=== PATIENT | female | born 1945 | race African-American/Black ===

== ENCOUNTER → 2018-03-13 | Outpatient (CLI) | payer OTHER ==
[~2018-03-13] VITALS: Ht 165.1 cm; Wt 72.1 kg
[~2018-03-13] MED LIST: ACIPHEX 20 MG T20 MG PO; ACYCLOVIR 200200 MG; ACYCLOVIR 200200 MG PO; ADULT LOW DOSE81 MG PO; ADVAIR HFA 230M12 GM INH; ADVAIR HFA115 MCG/21 INH; ALBUTEROL2.5 MG/31 INH; ALBUTEROL2.5 MG/32 IH; ALLEGRA ALLERG180 MG PO; ALLEGRA-D 12 H1 EAC1 PO; ALLEGRA180 MG PO; ASPIR 8181 MG PO; ASPIRIN EC81 M1 PO; ASPIRIN325 PO; ASTELIN30 ML NASAL; ATIVAN1 MG PO; ATORVASTATIN CA40 MG PO; BAYER CHEWABLE81 MG PO; BENTYL10 MG PO; BENZONATATE100 MG PO; CARBAMAZEPINE200 M2; CARBAMAZEPINE200 M2 PO; CARBAMAZEPINE200 M6 PO; CO Q-10100 MG PO; COLACE1 EAC1 RC; COLACE100 MG PO; CRESTOR10 MG; CRESTOR10 MG PO; CRESTOR20 MG PO; DILAUDID2 M1 PO; FLAGYL500 MG PO; FLEXERIL PO; GABAPENTIN300 MG PO; GLUCOPHAGE500 MG PO; GLYCOLAX POWDER17 G1 PO; HCTZ PO; HYDROCHLOROTHIA25 M2 PO; HYDROCODON-ACE1 EAC5 PO; HYDROXYZINE HCL25 M1; HYDROXYZINE HCL25 M2 PO; IBUPROFEN 200200 M1; INDOMETHACIN 2525 MG; IRON325 PO; LEVAQUIN 500 M500 M2 PO; LIDODERM 5%1 PATC1 TRANSDERM; LIDODERM 5%1 PATCH TOP; LIPITOR10 MG PO; LISINOPRIL10 MG PO; LMX 430 GM TP; LOVASTAT40; MEDROL DOSPAK21 TAB PO; MEDROLDOSEPACK PO; METFORMIN 500500 MG PO; MIRALAX17 GM PO; NASONEX17 GM NASAL; NEURONTIN 300300 M1 PO; NORCO 10-325 T1 EACH; NORCO 5-325 TA1 EACH PO; NORFLEX100 MG PO; OMEGA-31000 M1 PO; ORPHENADRINE C100 M2 PO; PERCOCET 5-3251 EACH PO; PHENERGAN 25 MG25 M1 PO; PREDNISONE 10 M10 MG PO; PREDNISONE50 MG PO; PROAIR HFA8.5 GM INH; PROCTOFOAM-HC F10 GM RC; PROTONIX40 M2 PO; PROTONIX40 MG PO; PROVENTIL HFA6.7 G1 INH; REGLAN 10 MG TA10 MG PO; SENNA PO; SIMVASTATIN10 MG PO; TEGRETOL XR200 MG PO; TIMOLOL MALEATE5 M1 OPHTHALMIC; TRAVATAN 0.004%5 ML OPHTHALMIC; TRAVOPROST 0.02.5 ML OPHTHALMIC; VALIUM5 MG PO; VICODIN 10/325 PO; VIVELLE-DOT1 EAC1; VIVELLE1 EAC1 TD; VOLTAREN GEL 1100 G1 TOP; ZEGERID 40 MG1 EACH PO; ZYRTEC10 M2; [UNRECOGNIZED DRUG - OTHER]; [UNRECOGNIZED DRUG - OTHER] PO; [UNRECOGNIZED DRUG - REMARK] PO
--- NOTE | ~2018-03-13 | P ---
[facility] [place] [address] PROCEDURE REPORT Name: RAHUL PRATER Room #: REG [facility].#: [id number] Admission: 03/13/18 Attend Phys: Arturo Coronado MD Discharge: Date of : 47 Report #: [id number] THIS REPORT FOR: //name// CC: Arturo Pope BRIEF HISTORY: The patient is a 72-year-old woman well known to me with history of chronic abdominal pain and a submucosal antral nodule, which has been noted in the past. She presents for followup of the antral nodule. PREOPERATIVE DIAGNOSIS: Antral nodule. POSTOPERATIVE DIAGNOSES: 1. Antral nodule. 2. Small hiatus hernia. 3. Diffuse gastritis. MEDICATIONS: Deep sedation with propofol per anesthesia. SPECIMEN: Biopsies of antral nodule. ESTIMATED BLOOD LOSS: 3 mL. PROCEDURE: EGD with biopsy. FINDINGS: Prior to propofol sedation, procedure of upper endoscopy and biopsy was reviewed with the patient as well as potential risks and its complications. She indicates she understands and desires to proceed. With the patient in left lateral decubitus position, the Olympus video endoscope was inserted in the cervical esophagus under direct vision without difficulty. Examination of this organ through its entire length revealed normal esophageal mucosa down the squamocolumnar junction. The mucosa of the squamocolumnar junction was within normal limits. No strictures, masses or Childs mucosa was seen. A small hiatus hernia, less than 2 cm was intermittently seen. The scope was advanced in the stomach, was examined on end view as well as retroflexed views. She was noted to have a pattern of diffuse gastritis; this had been noted in the past. Previous biopsies for H. pylori have been negative. The submucosal nodule was once again seen distally in the stomach and the prepyloric antrum. It was at about the 5 o'clock position with reference to the pylorus. It had smooth and benign appearance. With use of an open biopsy forceps as a guide, the nodule was less than 2 cm. This was unchanged from previous endoscopic evaluations. Multiple biopsies were obtained at this single point in an attempt to obtain deep biopsies for specific diagnosis. The pylorus, duodenal bulb and postbulbar duodenal sweep were all inspected and noted to be unremarkable. At that point, the scope was slowly withdrawn and careful circumferential views confirmed the above findings. The patient tolerated the procedure well. [address] [address] PROCEDURE REPORT Name: JOSIRAHUL Room #: REG CLDomenic Beltran#: [id number] Admission: 03/13/18 Attend Phys: Arturo Coronado MD Discharge: Date of : 47 Report #: [id number] CONDITION OF THE PATIENT UPON DISCHARGE: Following procedure, the patient drowsy, arousable, conversant and will be discharged home when fully ambulatory. INSTRUCTIONS TO THE PATIENT AND FAMILY AT THE TIME OF DISCHARGE: We will follow up on the pathology of the nodule. I do not believe this nodule has changed in size. We will make further recommendation after reviewing the pathology. At this point in time, she is to return to see me on an as needed basis. By: 1111 0045 Arturo Coronado MD /nt
--- NOTE | ~2018-03-13 | PATH ---
[facility] [place] [address] PATHOLOGY RPT PROCEDURE Name: JERRI PRATER Room #: REG LISA Nichols.#: [id number] Admission: 03/13/18 Date of : 47 Discharge: Report #: [id number] Path Case #: [id number] [facility] Accession Number: [id number] . 01 Material submitted: . SUBMUCOSAL MASS OF ANTRUM BX . 01 Clinical history: . Pre-OP DX: HX, antral nodule, chronic abdominal pain Post-OP DX: Hiatus hernia, gastritis, submucosal mass antrum . 02 Diagnosis: Gastric mucosa "antrum nodule": - Fragments of gastric mucosa with underlying attached smooth muscle with recent hemorrhage and with mild reactive gastropathy. - No obvious mass is identified. - The biopsy may not be passenger service representative. - The immunoperoxidase stain for Helicobacter is negative. (SHA:augie; 03/16/2018) QMS/03/16/2018 . 02 Comment: This case is also reviewed by Dr. Jovanna Mosley. . 02 Electronically signed: . Cruz Uriarte MD, Pathologist NPI- [id number] . 01 Gross description: . Received in formalin labeled "Jerri Prater, submucosal mass of antrum," are 5 segments of vasquez soft tissue measuring 1.5 x 0.8 x 0.2 cm in aggregate dimensions and ranging from 0.3 to 0.4 cm in maximum dimension. The specimen is submitted entirely in cassette A1. (TSD; 03/13/2018) TOB/TOB . 02 Pathologist provided ICD-10: K31.9 . 02 CPT . 797468, Y14360 Specimen Comment: A courtesy copy of this report has been sent to Specimen Comment: [phone], . Specimen Comment: Report sent to / DR JOYNER Performed at: [address], [place], [place] [id number] [address] [address] PATHOLOGY RPT PROCEDURE Name: JERRI PRATER Room #: REG CLI M.R.#: [id number] Admission: 03/13/18 Date of : 47 Discharge: Report #: [id number] Path Case #: [id number] MD Ariel Walker MD Phone: [phone] Performed at: [address] [facility] [address] [id number] MD Samia Dale MD Phone: [phone]
== END | disposition home or self-care (01) ==
LOC: GI 07:21
DX: K31.9 Disease of stomach and duodenum, unspecified (principal); K29.70 Gastritis, unspecified, without bleeding; K44.9 Diaphragmatic hernia without obstruction or gangrene; E78.5 Hyperlipidemia, unspecified; F41.9 Anxiety disorder, unspecified; K21.9 Gastro-esophageal reflux disease without esophagitis; E11.9 Type 2 diabetes mellitus without complications; Z90.710 Acquired absence of both cervix and uterus; Z98.41 Cataract extraction status, right eye; Z98.42 Cataract extraction status, left eye; Z87.19 Personal history of other diseases of the digestive system; Z96.652 Presence of left artificial knee joint; Z98.890 Other specified postprocedural states; Z79.899 Other long term (current) drug therapy; Z88.0 Allergy status to penicillin; Z88.8 Allergy status to other drugs, medicaments and biological substances
CPT/HCPCS: 62110; 62900

== ENCOUNTER → 2020-03-10 | Outpatient (CLI) | payer OTHER ==
[~2020-03-10] MED LIST changes: +NORVASC5 M1 PO
== END ==
LOC: LAB 08:57
PROVIDERS: ATTEND Specialist
DX: Z01.812 Encounter for preprocedural laboratory examination (principal); Z20.828 Contact with and (suspected) exposure to other viral communicable diseases

== ENCOUNTER → 2020-03-15 | Outpatient (CLI) | payer OTHER ==
[~2020-03-15] VITALS: Ht 165.1 cm; Wt 79.4 kg
--- NOTE | 2020-03-15 11:15 | NUR ---
VASCULAR ACCESS CALLED TO GI LAB FOR 2 PIV'S ON PT THAT KEPT INFITRATING DURING PROCEDURE. SO MIDLINE REQUESTED BY DR EVANS. DISCUSSED BENEFITS AND RISK WITH PT,VERBALIZED UNDERSTANDING AND GAVE CONSENT. STEVE BRACHIAL WAS WIDELY PATENT WITH USG. 4FR POWER MIDLINE TRIMMED TO 10CM INSERTED TO 0CM.PT TOLERATED WELL. ML RELEASED FOR IMMEDIATE USE PER PROTOCOL TO KARINA MORALES
--- NOTE | 2020-03-16 17:31 | P ---
[facility] [place] [address] PROCEDURE REPORT Name: RAHUL PRATER [id number] Admission: 03/15/20 Attend Phys: Giancarlo Moreno Discharge: Date of : 47 Report #: [id number] THIS REPORT FOR: cc: Fabienne Pope MD,Fabienne Vick,Giancarlo Espinoza MD ~ CC: Giancarlo Pope MD DATE OF SERVICE: 03/15/2020 PROCEDURE PERFORMED: Colonoscopy. HISTORY OF PRESENT ILLNESS: The patient is a 74-year-old female with a history of Hemoccult positive stools, possible mild anemia. Upper endoscopy was just performed, which was essentially negative. Biopsies were obtained to rule out celiac sprue. The patient denies any family history of colon cancer. Bowel movements have been fairly normal. She was started on p.o. iron recently. She does have a history of irritable bowel syndrome and takes Bentyl on a p.r.n. basis. DESCRIPTION OF PROCEDURE: The risks and benefits of the procedure were explained to the patient, those risks including but not limited to bleeding, perforation and the risk of sedation. She understood these risks and gave informed consent. Sedation was given using propofol per anesthesia. Next, a digital rectal exam was initially performed, which was normal. Next, using a standard Olympus colonoscope, the scope was placed in the patient's anus and advanced under direct vision to the cecum. The overall prep was good in most areas fair in some areas. Multiple washings and aspirations were performed. The cecum and ileocecal valve were normal in appearance. Ascending and transverse colon were normal. Multiple diverticula were noted in the descending colon, in the sigmoid colon, no evidence of inflammation, otherwise normal. The rectal mucosa was normal. On retroflexion, small nonbleeding internal hemorrhoids were noted, otherwise normal colonoscopy. The scope was then withdrawn and the procedure terminated. The patient tolerated the procedure well. IMPRESSION: 1. Left-sided diverticulosis. 2. Internal hemorrhoids. 3. Otherwise, normal colonoscopy. RECOMMENDATIONS: No stigmata of bleeding on endoscopies today. Heme-positive stool may be secondary to internal hemorrhoids. At this point, we would recommend continuing p.o. iron and monitoring hemoglobin. We would repeat [address] [address] PROCEDURE REPORT Name: RAHUL PRATER Room #: REG Domenic Beltran#: [id number] Admission: 03/15/20 Attend Phys: Giancarlo Moreno Discharge: Date of : 47 Report #: [id number] colonoscopy in 5 years. Thank you for allowing me to participate in her care. <ELECTRONICALLY SIGNED> By: Giancarlo Vick MD 03/16/20 1731 1156 1751 Giancarlo Vick MD /nt
--- NOTE | 2020-03-16 17:32 | P ---
[facility] [place] [address] PROCEDURE REPORT Name: RAHUL PRATER [facility] [id number] Admission: 03/15/20 Attend Phys: Giancarlo Moreno Discharge: Date of : 47 Report #: [id number] THIS REPORT FOR: cc: Fabienne Pope MD,Giancarlo Shell MD, MD ~ CC: Giancarlo Pope MD DATE OF SERVICE: 03/15/2020 PROCEDURE PERFORMED: Upper endoscopy with biopsies. HISTORY OF PRESENT ILLNESS: The patient is a 74-year-old female with a recent history of Hemoccult positive stool on 02/08/2020. The patient denies any obvious bright red blood per rectum or melena. She states she may have a mild anemia and was started on oral iron recently. The patient has had EGD and colonoscopies in the past by my partner, Dr. Coronado. Last upper endoscopy in 2018 was essentially negative; however, she has got a known antral submucosal nodule. Biopsies at that time were negative. She then underwent an endoscopic ultrasound on 04/24/[address] 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 No further treatment was needed. The patient denies any family history of colon cancer. Her bowel movements have been fairly normal. She does have a history of irritable bowel syndrome and takes Bentyl on a p.r.n. basis. She also takes aspirin as well as Protonix daily. Plan is for EGD and colonoscopy today. DESCRIPTION OF PROCEDURE: The risks and benefits of the procedure were explained to the patient, those risks including but not limited to bleeding, perforation and the risk of sedation. She understood these risks and gave informed consent. Sedation was given using propofol per anesthesia. Next, using a standard Olympus upper endoscope, the scope was placed in the patient's mouth and advanced under direct vision through the esophagus, stomach and into the second portion of the duodenum. The esophagus was normal throughout. The GE junction was normal. Upon entering the stomach, a small hiatal hernia was noted. Overall, the gastric mucosa was normal. Once again, the antral submucosal nodule was noted. It appears to be the same size as was described on previous upper endoscopy. The pylorus was normal and patent. The duodenal bulb, first and second portion were all normal. Random biopsies of the second portion of the duodenum were obtained to rule out the possibility of celiac sprue due to her history of anemia. The scope was then withdrawn and the procedure terminated. The patient tolerated the procedure well. IMPRESSION: 1. Submucosal antral nodule again noted. 2. Small hiatal hernia. [address] [address] PROCEDURE REPORT Name: RAHUL PRATER Room #: REG LISA Beltran#: [id number] Admission: 03/15/20 Attend Phys: Giancarlo Moreno Discharge: Date of : 47 Report #: [id number] 3. Otherwise, normal upper endoscopy. RECOMMENDATIONS: 1. Await biopsy results. 2. We will proceed with colonoscopy next today. Thank you for allowing me to participate in her care. <ELECTRONICALLY SIGNED> By: Giancarlo Vick MD 03/16/20 1732 0954 1649 Giancarlo Vick MD /nt
--- NOTE | 2020-03-20 13:07 | PATH ---
[facility] [address] [address] PATHOLOGY RPT PROCEDURE Name: JERRI PRATER Room #: REG CL MBrooksR.#: [id number] Admission: 03/15/20 Date of : 47 Discharge: Report #: [id number] Path Case #: [id number] [facility] Accession Number: [id number] . 01 Material submitted: . duodenum - BIOPSY OF DUODENUM R/O SPRUE . 01 Clinical history: . ANEMIA, ABNORMAL STOOL . 02 Diagnosis: Small bowel "duodenum", endoscopic biopsy: - Duodenal mucosa without significant pathologic alteration. (LINNEA:lana; 03/17/2020) R 03/17/2020 1818 Local . 02 Electronically signed: . Latha Edwards MD, Pathologist NPI- [id number] . 01 Gross description: . The specimen is received in formalin, labeled "Everett, Jerri, BX of duodenum" and consists of 4 fragments of vasquez tissue measuring between 0.1 x 0.3 x 0.5 x 0.3 cm which are entirely submitted in A1. (SDY; 03/16/2020) SYU/SYU 03/16/2020 1316 Local . 02 Pathologist provided ICD-10: D64.9, R19.5 . 02 CPT . 046102 Specimen Comment: A courtesy copy of this report has been sent to [phone] Specimen Comment: Report sent to Performed at: 01 [facility] [address] [place] [id number] MD Ariel Walker MD Phone: [phone] Performed at: [address] [id number] MD Rogerio Abbasi MD Phone: [phone]
== END | disposition home or self-care (01) ==
LOC: GI 07:19
PROVIDERS: ATTEND Specialist
DX: R19.5 Other fecal abnormalities (principal); D64.9 Anemia, unspecified; K57.30 Diverticulosis of large intestine without perforation or abscess without bleeding; K44.9 Diaphragmatic hernia without obstruction or gangrene; K64.8 Other hemorrhoids; K31.89 Other diseases of stomach and duodenum; I10 Essential (primary) hypertension; E11.9 Type 2 diabetes mellitus without complications; E78.5 Hyperlipidemia, unspecified; F41.9 Anxiety disorder, unspecified; K21.9 Gastro-esophageal reflux disease without esophagitis; Z98.890 Other specified postprocedural states; Z79.899 Other long term (current) drug therapy; Z90.710 Acquired absence of both cervix and uterus; Z98.41 Cataract extraction status, right eye; Z98.42 Cataract extraction status, left eye; Z96.652 Presence of left artificial knee joint
CPT/HCPCS: 27000; 62110; 62900